=== PATIENT | female | born 1985 | race Caucasian/White ===

== ENCOUNTER 2017-05-29 15:47 | Emergency (ER) | payer MEDICAID, OTHER, SELFPAY ==
[~2017-05-29] VITALS: Ht 175.3 cm; Wt 117.9 kg
[2017-05-29 15:48] VITALS: BP 144/92
== END 2017-05-29 18:09 | disposition home or self-care (01) ==
LOC: ED 18:03
DX: S49.91XA Unspecified injury of right shoulder and upper arm, initial encounter (principal); T74.21XA Adult sexual abuse, confirmed, initial encounter; Y93.89 Activity, other specified; Y92.89 Other specified places as the place of occurrence of the external cause; Y99.8 Other external cause status
CPT/HCPCS: 81001; 87086; 99284

== ENCOUNTER 2020-10-29 10:02 | Emergency (ER) | payer MEDICAID ==
[~2020-10-29] VITALS: Ht 175.3 cm; Wt 100.0 kg
--- NOTE | 2020-10-29 10:12 | NUR ---
ROSE FROM [facility] AFTER PT STATES SHE "WAS POSIONED BY HER AUNT" SHE SAW A TINY BOTTLE WITH "XXX" NEXT TO HER COFFEE THAT HER AUNT SERVED HER. PT NOW STATES SHES SEEING DOUBLE, HER MOUTH IS DRY, SHE HAS BUMPS ON HER TOUNGE AND SHE IS DIZZY. PT SAYS SHES "NOT GOING TO NAAS." PT ATTACHED TO ALL MONITORS VSS. NADN. AWAITING ORDERS.
--- NOTE | 2020-10-29 10:31 | NUR ---
VIDYA AT BEDSIDE FOR EVALUATION. PT DENIES DAVIS/ SI. DR. GRIFFITH EVALUATIED.
--- NOTE | 2020-10-29 10:42 | NUR ---
PT UP TO BATHROOM WITH STEADY GAIT FOR UA. VSS. NADN.
[2020-10-29 11:00] LABS: BASOPHILS % (AUTO) 1 % (0-1); EOSINOPHILS % (AUTO) 1 % (1-7); LYMPHOCYTES % (AUTO) 15 % (22-44); MEAN CORPUSCULAR HEMOGLOBIN 28.9 pg (27.0-34.8); MEAN CORPUSCULAR HGB CONC 33.9 g/dL (32.4-35.8); MEAN PLATELET VOLUME 8.5 fL (7.4-10.4); MONOCYTES % (AUTO) 6 % (2-9); NEUTROPHILS % (AUTO) 78 % (42-75); PLATELET COUNT 254 x10^3/uL (130-400); RED BLOOD COUNT 4.71 x10^6/uL (3.82-5.3); RED CELL DISTRIBUTION WIDTH 13.4 % (9.6-15.2)
[2020-10-29 11:12] LABS: ALANINE AMINOTRANSFERASE 27 U/L (12-78); ALBUMIN 3.5 g/dL (3.4-5.0); ANION GAP 6 mmol/L (5-15); CALCIUM 8.5 mg/dL (8.5-10.1); CHLORIDE 110 mmol/L (98-107); CREATININE 0.78 mg/dL (0.55-1.02)
[2020-10-29 11:22] LABS: ALKALINE PHOSPHATASE 96 U/L (45-117); BILIRUBIN,TOTAL 1.7 mg/dL (0.2-1.0); TOTAL PROTEIN 6.8 g/dL (6.4-8.2)
--- NOTE | 2020-10-29 11:41 | NUR ---
PT RESTING IN BED. VSLauren. ZULEYKA.
[2020-10-29 11:49] LABS: AMPHETAMINE SCREEN, URINE Positive (Negative); BARBITURATE SCREEN, URINE Negative (Negative); BENZODIAZEPINE SCREEN, URINE Negative (Negative); CANNABINOID SCREEN, URINE Positive (Negative); COCAINE SCREEN, URINE Negative (Negative); METHADONE SCREEN, URINE Negative (Negative); OPIATE SCREEN, URINE Negative (Negative)
[2020-10-29 12:02] LABS: MICROSCOPIC INDICATED
--- NOTE | 2020-10-29 12:02 | NUR ---
TASK RN NOTE: PT SITTING UP IN BED. CURRENTLY AWAITING LAB RESULTS. NAD NOTED AT THIS TIME.
--- NOTE | 2020-10-29 12:13 | NUR ---
TASK RN NOTE: DISCUSSION WITH ED MD REGARDING PT'S RESULTS. AWAITING DC PAPERWORK.
[2020-10-29 12:22] VITALS: BP 124/78
== END 2020-10-29 12:33 | disposition home or self-care (01) ==
LOC: ED 12:20
DX: N39.0 Urinary tract infection, site not specified (principal); F15.10 Other stimulant abuse, uncomplicated; R42 Dizziness and giddiness; F17.200 Nicotine dependence, unspecified, uncomplicated
CPT/HCPCS: 36415; 80053; 80307; 81001; 84443; 85025; 87086; 99283